=== PATIENT | male | born 1990 | race Caucasian/White ===

== ENCOUNTER 2016-07-15 12:33 | Emergency (ER) | payer OTHER ==
[~2016-07-15] VITALS: Ht 172.7 cm; Wt 105.5 kg
[~2016-07-15 12:33] MED LIST: AUGMENTIN875 MG PO; BENTYL20 MG PO; CIPRO500 MG PO; LORTAB 5-325 M1 EACH PO; OXYCODONE HCL5 MG PO; PERCOCET 5/31 TABLET PO; PHENERGAN25 MG PR; ZOFRAN ODT4 MG PO; ZOFRAN4 MG PO
[2016-07-15 13:43] LABS: EOSINOPHIL (%) 1.6 % (0-5); EOSINOPHIL COUNT 0.1 K/uL (0-0.3); HEMATOCRIT 45.2 % (38.0-50.0); IMMATURE GRANULOCYTE (%) 0.2 % (0.0-0.7); IMMATURE GRANULOCYTE COUNT 0.1 K/uL; LYMPHOCYTE COUNT 2.5 K/uL (1.0-2.8); MCH 30.7 PG (29.0-34.0); MCHC 35.4 G/DL (30.0-36.0); MCV 86.8 FL (86-99); MEAN PLAT.VOLUME 9.7 uM^3 (9.0-12.4); MONOCYTE (%) 7.8 % (3-12); MONOCYTE COUNT 0.5 K/uL (0-0.8); NEUTROPHIL (%) 50.4 % (45-76); NEUTROPHIL COUNT 3.2 K/uL (1.8-6.4); PLATELET COUNT 187 K/uL (156-360); RBC DIS.WIDTH-CV 12.7 % (11.8-14.6); RBC DIS.WIDTH-SD 39.8 % (39-53); RED BLOOD COUNT 5.21 M/uL (4.00-5.50); WHITE BLOOD COUNT 6.3 K/uL (4.1-10.2)
[2016-07-15 13:53] LABS: CHLORIDE 107 mEq/L (99-109); POTASSIUM 4.2 mEq/L (3.7-5.4); SODIUM 141 mEq/L (136-147)
[2016-07-15 13:55] LABS: GLUCOSE 95 mg/dL (70-99)
[2016-07-15 13:58] LABS: GFR ESTIMATE (CALCULATED) > 59 mL/min/
[2016-07-15 13:59] LABS: UREA NITROGEN (BUN) 11 mg/dL (9-23)
[2016-07-15 14:06] LABS: TROP-I INTERPRETATION NEGATIVE; TROPONIN-I < 0.01 ng/mL (0.0-0.30)
[2016-07-15 14:52] LABS: ANION GAP 12 MEQ/L (2-14)
[2016-07-15] MEDS ORDERED: NAPROXEN500 MG PO (15:22)
[2016-07-15 15:41] VITALS: BP 119/70
== END 2016-07-15 15:42 | disposition home or self-care (01) ==
LOC: EME 12:33
PROVIDERS: Physician Assistant
DX: S29.011A Strain of muscle and tendon of front wall of thorax, initial encounter (principal); X50.3XXA Overexertion from repetitive movements, initial encounter; Y93.B1 Activity, exercise machines primarily for muscle strengthening; Z87.891 Personal history of nicotine dependence; Z88.1 Allergy status to other antibiotic agents
CPT/HCPCS: 71020; 71120; 80048; 84484; 85025; 93005; 99281; 99283